=== PATIENT | female | born 1990 | race Caucasian/White ===

== ENCOUNTER 2020-02-02 13:53 | Outpatient (CLI) | payer BC, SELFPAY ==
[2020-02-02] MEDS: RHO(D) IMMUNE GLOBULIN 300 MCG SYRINGE IM (17:52)
== END 2020-02-02 13:54 | disposition home or self-care (01) ==
LOC: ANHLAB 14:03
PROVIDERS: Visit Provider Obstetrics & Gynecology
DX: O20.0 Threatened abortion (principal)
CPT/HCPCS: 36415; 85461; 90384; 96372; J2790

== ENCOUNTER 2020-06-06 09:27 | Outpatient (RCR) | payer BC, SELFPAY ==
[2020-06-06 11:11] LABS: Hematocrit 37.1 % (37.0-47.0); Hemoglobin 12.5 g/dL (12.0-15.0)
[2020-06-06 11:22] LABS: Glucose 1 Hour PP 50gm Dose 97 mg/dL
[2020-06-06 12:03] LABS: HIV 1/2 Ab P24 Ag Result Negative (Negative)
[2020-06-06] MEDS: RHO(D) IMMUNE GLOBULIN 300 MCG SYRINGE IM (15:27)
[2020-06-07 07:29] LABS: Rapid Plasma Reagin Non-Reactive (NonReactive)
== END 2020-09-04 23:59 | disposition home or self-care (01) ==
LOC: ANHLAB 09:27
PROVIDERS: Visit Provider Obstetrics & Gynecology
DX: Z29.13 Encounter for prophylactic Rho(D) immune globulin (principal); Z11.4 Encounter for screening for human immunodeficiency virus [HIV]; O36.0130 Maternal care for anti-D [Rh] antibodies, third trimester, not applicable or unspecified; Z3A.00 Weeks of gestation of pregnancy not specified
CPT/HCPCS: 36415; 82947; 85014; 85018; 85461; 86592; 86703; 90384; 96372; G0432; J2790

== ENCOUNTER 2020-08-04 23:33 | Inpatient (IN) | payer BC, SELFPAY ==
[2020-08-05] VITALS (104 sets, daily range): BP systolic 90–150; BP diastolic 42–131; PULSE 75–151; RESP 15–20; TEMP 36.6–39.1; O2SAT 94–100; BMI 28.5
--- NOTE | 2020-08-05 01:12 | PC.NURSE ---
Daylight Savings Time For Daylight Savings Time Ending in the Fall - Clocks are moved back. For Daylight Savings Time Beginning in the Spring - Clocks are moved ahead. For [facility], the time of change occurs at 0200 hrs. Time is taken from the sports book server. This entry on the patient's chart recognizes the change in time reflected during documentation. Example: 2 entries for vital signs may be charted for 0200 hrs.
--- NOTE | 2020-08-05 01:13 | PC.NURSE ---
Daylight Savings Time For Daylight Savings Time Ending in the Fall - Clocks are moved back. For Daylight Savings Time Beginning in the Spring - Clocks are moved ahead. For [facility], the time of change occurs at 0200 hrs. Time is taken from the telegraph repeater technician. This entry on the patient's chart recognizes the change in time reflected during documentation. Example: 2 entries for vital signs may be charted for 0200 hrs.
[2020-08-05 01:19] LABS: Basophils Percent Auto 0.3 % (0.2-1.2); Eosinophils Percent Auto 0.2 % (0-4.4); Hematocrit 36.9 % (37.0-47.0); Hemoglobin 12.5 g/dL (12.0-15.0); Immature Granulocyte Absolute 0.03 K/mm3 (0.00-0.031); Immature Granulocyte Percent A 0.3 % (0-0.5); Lymphocytes Absolute Auto 1.47 K/mm3 (0.9-3.2); Lymphocytes Percent Auto 12.3 % (18.3-44.2); Mean Corpuscular HGB Conc 33.9 g/dl (32-36); Mean Corpuscular Hemoglobin 29.7 pg (26-34); Mean Corpuscular Volume 87.6 fl (80-100); Mean Platelet Volume 10.7 fl (7.4-10.4); Monocytes Absolute Auto 0.8 K/mm3 (0.1-0.6); Monocytes Percent Auto 6.6 % (2.6-8.5); Neutrophils Absolute Auto 9.6 K/mm3 (1.3-6.7); Neutrophils Percent Auto 80.3 % (45.5-73.1); Platelet Count Result 108 k/mm3 (150-375); Red Blood Count 4.21 M/mm3 (4.2-5.4); Red Cell Distribution Width 12.7 % (11.5-14.5)
--- NOTE | 2020-08-05 01:26 | LDADM ---
This patient, Estevan Kelley, was admitted to Labor/Delivery/Recovery 107 on 08/04/20 at 23:33. Plans for labor, pain management and were discussed with patient. Patient/family oriented to hospital policies and general routines including ID bracelet, bed and alarms, visiting hours, pain management, procedures, bathroom and other care routines, personal items, smoking policy, room service/diet and guest tray routines, infant security routines, and visiting hours. Patient/Family are encouraged to report perceived risks to care and to ask questions if they do not understand what they are told or what they should do. See OBIX for further documentation.
[2020-08-05 02:00] LABS: Glucose Point of Care 96 (65-105)
[2020-08-05] MEDS: ONDANSETRON INJ 4 MG/2 ML VIAL IV PUSH ×2 (02:06→08:02)
[2020-08-05] MEDS: fentaNYL CITRATE INJ (*CRX) 100 MCG/2 ML VIAL 50 MCG IV PUSH (02:24)
[2020-08-05] MEDS: LACTATED RINGERS 1,000 ML 125 ML IV CONT ×2 (05:35→09:00)
[2020-08-05] MEDS: FAMOTIDINE 20 MG/2 ML VIAL IV PUSH (07:04)
[2020-08-05 07:15] LABS: Glucose Point of Care 127 (65-105)
[2020-08-05] MEDS: fentaNYL CITRATE INJ (*CRX) 100 MCG/2 ML VIAL IV PUSH (08:02)
--- NOTE | 2020-08-05 09:44 | WPDANESEPPF ---
Anes - Initial Pre Proc Eval Procedure: labor epidural Date/Time: 08/05/20 09:44 Surgeon: Barbie Rebolledo MD Pre Op Diagnosis: labor pain Pre Op Diagnosis: Contractions Patient Data Age: 29 Gender: F Height: 1.6 m Weight: 73.2 kg Last Vital Signs Temp 36.9 C 08/05/20 07:00 Pulse 95 08/05/20 09:42 Resp 16 08/05/20 07:00 BP 108/62 08/05/20 09:42 Pulse Ox 97 08/05/20 09:40 Allergies Allergy/AdvReac Type Severity Reaction Status Date / Time No Known Allergies Allergy Verified 07/27/20 14:44 Home Medications Medication Instructions Recorded Confirmed Type albuterol sulfate 2 inh INHALATION Q6H PRN 07/27/20 07/27/20 History prenat.vits,kaleb,[id number] 1 tablet PO DAILY 07/27/20 08/05/20 History [ #2] Laboratory Tests 08/05/20 08/05/20 08/05/20 01:11 HARP MAKER 01:11 HARP MAKER 01:11 HARP MAKER WBC 12.0 K/mm3 H K/mm3 (4.5-10.0) RBC 4.21 M/mm3 M/mm3 (4.2-5.4) Hgb 12.5 g/dL g/dL (12.0-15.0) Hct 36.9 % L % (37.0-47.0) MCV 87.6 fl fl (80-100) MCH 29.7 pg pg (26-34) MCHC 33.9 g/dl g/dl (32-36) RDW 12.7 % % (11.5-14.5) Plt Count 108 k/mm3 L k/mm3 (150-375) MPV 10.7 fl H fl (7.4-10.4) Immature Gran % (Auto) 0.3 % % (0-0.5) Neut % (Auto) 80.3 % H % (45.5-73.1) Lymph % (Auto) 12.3 % L % (18.3-44.2) Ray % (Auto) 6.6 % % (2.6-8.5) Eos % (Auto) 0.2 % % (0-4.4) Baso % (Auto) 0.3 % % (0.2-1.2) Lymph # (Auto) 1.47 K/mm3 K/mm3 (0.9-3.2) Ray # (Auto) 0.8 K/mm3 H K/mm3 (0.1-0.6) Eos # (Auto) 0.0 K/mm3 K/mm3 (0-0.3) Baso # (Auto) 0.0 K/mm3 K/mm3 (0.0-0.1) Abs Immat Gran (auto) 0.03 K/mm3 K/mm3 (0.00-0.031) Absolute Neuts (auto) 9.6 K/mm3 H K/mm3 (1.3-6.7) Absolute Nucleated RBC 0.0 K/mm3 K/mm3 (0.0-0.012) Nucleated RBC % 0.0 % % (0.0-0.2) POC Capillary Glucose RPR Pending Blood Type A Negative Antibody Screen Positive Antibody Identification Passive Due to RH Imm Glob Antigen Identification Cancelled KEMAL, IgG Interpret Not Performed KEMAL, Poly Interpret Negative KEMAL, Complement Interp Not Performed 08/05/20 08/05/20 02:01 07:12 WBC RBC Hgb Hct MCV MCH MCHC RDW Plt Count MPV Immature Gran % (Auto) Neut % (Auto) Lymph % (Auto) Ray % (Auto) Eos % (Auto) Baso % (Auto) Lymph # (Auto) Ray # (Auto) Eos # (Auto) Baso # (Auto) Abs Immat Gran (auto) Absolute Neuts (auto) Absolute Nucleated RBC Nucleated RBC % POC Capillary Glucose 96 mg/dl mg/dl 127 mg/dl H mg/dl (65-105) (65-105) RPR Blood Type Antibody Screen Antibody Identification Antigen Identification KEMAL, IgG Interpret KEMAL, Poly Interpret KEMAL, Complement Interp Patient hx anesthesia problems: none Family hx anesthesia problems: none [facility] Past Medical History Medical History (Updated 08/05/20 @ 09:45 by Chris Yeung DO) Asthma Fibromyalgia Hypoglycemia Family History Family History (Updated 07/27/20 @ 14:50 by Perri Brizuela RN) Mother Fibromyalgia Grandparent Alzheimer disease Grandparent Diabetes mellitus Grandparent Skin cancer Social History Social History Smoking status: Never smoker Substance use: never Spiritual care concerns: No Anes - Eval Final PreProcedure Day of Procedure 08/05/20 09:44 Patient weight: overweight ASA classification: III Anesthesia type and monitoring: regional epidural and sta
--- NOTE | 2020-08-05 09:53 | WPDOBADMIT ---
Obstetrics - Admit Note Admission Note: record reviewed. No pertinent additions to the history and/or any subsequent changes in the physical findings that are not consistent with the expected course of the were found.Pt arrived in labor Sve /-2, AROM large amount of clear odorless fluid Additions to the history and/or subsequent changes in the physical findings follow. None.
[2020-08-05] MEDS: AMPICILLIN 2 GM/NS 100 ML 2 GM/100 ML BAG IVPB (12:24)
[2020-08-05] MEDS: OXYTOCIN 30 UNITS/NS 500 ML 30 UNITS/500 ML BAG 999 UNITS IV CONT (13:40)
--- NOTE | 2020-08-05 13:53 | PM.OBPRVD ---
OB - Delivery Note Procedure Delivery date: 08/05/20 Procedure: vaginal delivery events: No Care and Labor < 37 Weeks Intrapartal events: None and Febrile Delivery augmentation: rupture of membranes Delivery monitor: none Route of delivery: Laceration Description: Periurethral and Perineal - 1st Degree Delivery repair: vicryl Specimen: Yes Estimated blood loss (mL): 362 Anesthesia type: Epidural Disposition: other () Complications: maternal fever [place] Baby Date of : 08/05/20 Time of : 13:33 Weeks of gestation at delivery: 36 Infant gender: Male Weight (pounds): 6 Weight (ounces): 2 presentation: vertex position: Left Occiput Anterior Placenta delivery description: Spontaneous cord vessel description: 3 Vessels and Clamped/Cut Narrative: tachycardia and fever, baby to nursery for continued monitoring
[2020-08-05] MEDS: OXYTOCIN 30 UNITS/NS 500 ML 30 UNITS/500 ML BAG 125 UNITS IV CONT (13:56)
[2020-08-05] MEDS: WITCH HAZEL 40 PADS 1 PAD TOPICAL (15:34)
[2020-08-05] MEDS: BENZOCAINE 20% AER SPR (*SP) 56 GM CAN 1 SPRAY TOPICAL (15:34)
[2020-08-05] MEDS: LANOLIN (LANSINOH) 7.5 GM CREAM 1 APPLIC TOPICAL (15:35)
--- NOTE | 2020-08-05 16:16 | PC.NURSE ---
Patient transferred to post room # via 280 per wheelchair. Support person present. Oriented to unit, room, information board, rooming in, admission packet and security measures. Patient verbalizes understanding.
[2020-08-05] MEDS: DOCUSATE SODIUM 100 MG CAPSULE PO (16:46)
[2020-08-05] MEDS: IBUPROFEN 600 MG TABLET PO (16:46)
[2020-08-06] MEDS: IBUPROFEN 600 MG TABLET PO ×4 (02:08→20:36)
[2020-08-06] MEDS: ACETAMINOPHEN 325 MG TABLET 650 MG PO ×3 (02:09→14:37)
[2020-08-06 05:51] LABS: Hematocrit 28.5 % (37.0-47.0); Hemoglobin 9.5 g/dL (12.0-15.0)
--- NOTE | 2020-08-06 07:50 | WPDANLDPN2 ---
Anes-Prog Note L&D Date/Time: 08/06/20 07:50 Comfortable throughout: labor and delivery Neuraxial method: epidural Epidural/Spinal procedure site: clean & non-tender Neuro status: Neuro function grossly intact. Cardiovascular status: normal Respiratory status: normal Airway patency: baseline Mental status: baseline Post-Op hydration status: normal Vital Signs: Last Vital Signs Temp 36.9 C 08/05/20 20:00 Pulse 94 08/05/20 20:00 Resp 18 08/05/20 20:00 BP 106/61 08/05/20 20:00 Pulse Ox 98 08/05/20 20:00 Pain score (VAS): 10/14 I/O: Intake & Output 08/05/20 08/05/20 08/06/20 15:59 23:59 07:59 Intake Total 2700 Output Total 493 Balance 2207 Post-procedural complaints: none Patient feedback: Patient satisfied with anesthetic care.
[2020-08-06 08:00] VITALS: BP 103/61; PULSE 84; RESP 18; TEMP 36.2
--- NOTE | 2020-08-06 08:09 | PM.OBPNVD ---
OB - PN: Subj Subjective Date/time seen: 08/06/20 08:09 Patient comments: no complaints baby status: doing well OB - PN: Obj Data Labs CBC & Chem 7: 08/06/20 05:06 Labs: Laboratory Results - last 24 hr 08/06/20 05:06 Hgb 9.5 L D Hct 28.5 L OB - PN A/P Plan day: 1 Plan: routine care Time Spent With Patient Time: Total time spent is greater than 50% in coordination of care (as documented) at patient's floor/unit and/or counseling patient: Time with patient: less than 15 minutes Review of Systems Review of Systems: All systems reviewed & are unremarkable except as noted in HPI and below Exam Narrative: Exam Narrative: Fundus firm and vaginal flow controlled. No lower ext redness, warmth, or edema. Negative homans. Const: General: comfortable Chest: Breast/axilla inspection: normal inspection of the breasts Resp: Effort & Inspection: normal respiratory effort Cardio: Rate: regular rate GI: GI Palp: Yes Soft to palpation Psych: Appearance: grossly normal Affect: normal affect Attitude: cooperative Thought content: Yes Normal thought content present Judgement: Good judgement present (Psych)
[2020-08-06] MEDS: MULTIVIT/MIN/PREN/FOL AC/IRON TABLET 1 TAB PO (08:49)
[2020-08-06] MEDS: DOCUSATE SODIUM 100 MG CAPSULE PO (08:50)
[2020-08-06] MEDS: POLYSACCHARIDE IRON COMPLEX 150 MG CAPSULE PO ×2 (08:50→17:33)
[2020-08-06] MEDS: WITCH HAZEL 40 PADS 1 PAD TOPICAL (08:51)
[2020-08-06] MEDS: BENZOCAINE 20% AER SPR (*SP) 56 GM CAN 1 SPRAY TOPICAL (08:51)
[2020-08-06] MEDS: LANOLIN (LANSINOH) 7.5 GM CREAM 1 APPLIC TOPICAL (08:51)
[2020-08-06 09:57] LABS: Rapid Plasma Reagin Non-Reactive (NonReactive)
--- NOTE | 2020-08-06 14:00 | PC.NURSE ---
Consulted with patient, mother reports infant will eagerly latch using a nipple shield. Mother states she can independently latch with shield and will remove after a few minutes of nursing to complete feeding without shield. Mother states her nipples are inverted. Discussed nipple shield precautions and possible complications. Instructions given on application and cleaning of shield. Patient able to return demonstration on proper application of shield. Discussed the need to initiate pumping if continues to nurse with the shield. Patient verbalizes understanding. Discussed and the 366/7 week , establishing may have its own unique set of circumstances due to their immaturity. infants may be less alert, have less stamina and may have issues with latch, suck and swallow. With the possible inability to have a vigorous suck swallow, infants may not be adequately stimulating mother and/or able to have adequate milk transfer. Pumping should be considered for additional stimulation and to offer EBM as part of supplement if needed. Mother's nipples are not inverted, they will draw in depending on where mother applies hold. Suggested mother use U hold farther away from areola. Reviewed infant feeding cues, frequencies, duration of feedings, feeding elimination flow sheet, and signs of adequate intake. Demonstrated stimulation techniques to wake infant for feeding. Assisted with infant to breast. Reviewed positioning/alignment in cross cradle, holding breast in U hold and guided asymmetrical latch on. Discussed rational for each. Infant was able to latch correctly. Infant nursed eagerly, with steady draws and frequent swallowing noted. Reviewed signs of a correct latch, effective nursing and suck swallow ratio. was able to maintain latch without discomfort to mother. released latch, mother was able to independently latch correctly. Nipple care reviewed. Suggested mother stimulate infant while feeding to keep awake and nursing effectively for increased intake and to assist with maintaining deep latch. Instructed mother to call out for RN assistance if she is unable to latch infant for feeding or she has discomfort with nursing. Instructed feeding should be initiated three hours from start of last feeding or if feeding cues are noted before. Mother voiced understanding of information shared.
--- NOTE | 2020-08-06 14:35 | PCDIET ---
Mother wishes instructions on her breastpump from home. Instructions given on breast pump care and usage, pumping schedule, nipple care, and collection and storage of breast milk. Encouraged [id number], breast massage and manual expression to stimulate supply. Assessed patient for correct flange size, placement and draw. Patient verbalizes and demonstrates understanding of instructions. Advised to pump 5 minutes after each feeding.
[2020-08-06 20:25] VITALS: BP 104/52; PULSE 84; RESP 16; TEMP 36.8; O2SAT 99
[2020-08-07] MEDS: IBUPROFEN 600 MG TABLET PO (05:01)
--- NOTE | 2020-08-07 07:35 | P.PNOB_ITS ---
OB - PN: Subj Subjective Date/time seen: 08/07/20 07:35 Patient comments: no complaints baby status: doing well OB - PN: Obj Data Labs CBC & Chem 7: 08/06/20 05:06 Labs: Laboratory Results - last 24 hr 08/05/20 01:11 FIELD ARTILLERY CREWMEMBER RPR Non-reactive OB - PN A/P Plan day: 2 Plan: discharge home Time Spent With Patient Time: Total time spent is greater than 50% in coordination of care (as document ed) at patient's floor/unit and/or counseling patient: Review of Systems Review of Systems: All systems reviewed & are unremarkable except as noted in HPI and below Constitutional: Constitutional: Reports as per HPI Exam Const: General: cooperative Extrem: General: normal to inspection Psych: Attitude: cooperative
--- NOTE | 2020-08-07 07:36 | P.DS_ITS ---
DS: Admitting Diagnosis Admitting Diagnosis Admitting Diagnosis: Contractions OB - DS: Summary OB Procedures : None OB Procedures Intrapartum: Spontaneous Vag Delivery OB Procedures: : None Time Spent with Patient Time attestation: Total time spent providing and/or coordinating discharge services: DS: Data Data Completed and Pending Pending studies at discharge: Pending at discharge 08/05/20 13:40 Surgical [PTH] Routine Labs on day of discharge: Labs from last 24 hours 08/05/20 01:11 CLIENT REPRESENTATIVE RPR Non-reactive Discharge Plan Discharge Attending physician on discharge: Barbie Rebolledo Discharging Clinician: Barbara Garland Patient Disposition: Home, Self-Care Activity: pelvic rest Diet: regular Patient Instructions: Antibiotic Form Stand Alone Forms: General Discharge Information Follow-up/Referrals: Barbara Garland CNM [Certified Nurse Handle Rounder Operator] - 4 Weeks Discharge Medications: New polysaccharide iron complex 150 mg iron Capsule 150 mg PO BIDWM Qty: 60 RF: 0 Continued #2 Tablet 1 tablet PO DAILY RF: 0 albuterol sulfate 90 mcg/actuation Aerosol Powdr Breath Activated 2 inh INHALATION Q6H PRN (Reason: Respiratory Distress) RF: 0 Date of admission: 08/04/20 23:33 Primary Care Provider: PHYSICIAN,NOTCHER Admitting Provider: Barbie Rebolledo Attending physician on admission: Barbie Rebolledo
[2020-08-07 07:55] VITALS: BP 104/54; PULSE 67; RESP 18; TEMP 36.4; O2SAT 100
[2020-08-07] MEDS: POLYSACCHARIDE IRON COMPLEX 150 MG CAPSULE PO (07:58)
[2020-08-07] MEDS: MULTIVIT/MIN/PREN/FOL AC/IRON TABLET 1 TAB PO (07:58)
[2020-08-07] MEDS: DOCUSATE SODIUM 100 MG CAPSULE PO (07:58)
[2020-08-07] MEDS: ACETAMINOPHEN 325 MG TABLET 650 MG PO (08:01)
--- NOTE | 2020-08-07 08:10 | PC.NURSE ---
Patient viewed the discharge video Mother & Baby Care, The First Two Weeks . Patient was given the opportunity and encouraged to ask questions. Patient verbalized understanding of information shared and has been given the mother/baby guide for home reference.
[2020-08-08 09:36] VITALS: BP 119/63; PULSE 85; RESP 20; TEMP 36.9; O2SAT 100
--- NOTE | 2020-08-17 02:44 | PM.OBDSVD ---
DS: Admitting Diagnosis Admitting Diagnosis Admitting Diagnosis: Contractions OB - DS: Summary OB Procedures : None OB Procedures Intrapartum: Spontaneous Vag Delivery OB Procedures: : None Time Spent with Patient Time attestation: Total time spent providing and/or coordinating discharge services: DS: Data Data Completed and Pending Completed studies during hospitalization: Pending at discharge 08/05/20 13:40 Surgical [PTH] Routine Discharge Plan Discharge Attending physician on discharge: Barbie Rebolledo Consulting providers: ; Barbara Garland ; Magdalena Rodriguez ; Chris Yeung Discharging Clinician: Barbara Garland Patient Disposition: Home, Self-Care Activity: pelvic rest Diet: regular Discharge Instructions: Education: Mom and Baby Guide and Preeclampsia Handout Given to: Mother Follow-Up: Call your delivering provider's office for an appointment to be seen in: 4 Weeks [facility]. Appointment Date/Time: August 08, 2020 at 9:00 am What to expect at your follow-up visit: Physical Assessment Call [phone] if you are unable to keep your appointment time. BREAST CARE: * Wear a snug supportive bra. * For engorgement discomfort: Breast Feeding: * Apply warm moist washcloths * Express milk as needed to relieve engorgement * Wear loose clothing * For sore nipples: * Identify correct latch-on * Apply warm moist washcloths before and after nursing * Air dry nipples after nursing * May apply Lansinoh cream to nipples EPISIOTOMY/PERINEAL CARE: * Until bleeding stops, use your beto bottle after urinating * Change your pad frequently throughout the day * You may take sitz baths several times a day (fill your bathtub with warm water and soak for 20 minutes.) Do NOT bathe in the water * No tub baths until seen by your physician - You may shower ACTIVITY: * Rest as much as possible. * Do not exercise or lift anything heavier than your baby (such as laundry or other children.) * Avoid stairs or driving as much as possible. * Do not put anything into the vagina. No douching, tampons, or sexual activity until seen by physician. NOTIFY PHYSICIAN IF YOU HAVE ANY QUESTIONS OR IF ANY OF THE FOLLOWING SYMPTOMS OCCUR: * If your episiotomy or perineum becomes red, swollen, or more painful than what you have experienced in the hospital. * If your vaginal bleeding becomes foul smelling. * If your vaginal bleeding becomes more heavy than a period or if your bleeding changes from pink to bright red. However, you may pass an occasional walnut-sized clot once or twice for the first week . * If you experience a sharp, shooting pain in you calves. * If you discover a hard, reddened area on your breast or if you experience flu-like symptoms. DIET: * Eat regular, well-balanced meals. * Drink plenty of fluids daily. If , drink to thirst. Stand Alone Forms: General Discharge Information Follow-up/Referrals: Barbara Garland CNM [Certified Nurse Designer] - 4 Weeks Discharge Medications: New polysaccharide iron complex 150 mg iron Capsule 150 mg PO BIDWM Qty: 60 RF: 0 Continued prenat.vits,kaleb,[id number] Tablet 1 tablet PO DAILY RF: 0 albuterol sulfate 90 mcg/actuation Aerosol Powdr Breath Activated 2 inh INHALATION Q6H PRN (Reason: Respiratory Distress) RF: 0 Date of admission: 08/04/20 23:33 Primary Care Provider: PHYSICIAN,MANAGER TELEMETRY Admitting Provider: Barbie Rebolledo Attending physician on admission: Barbie Rebolledo Condition: Stable
== END 2020-08-07 11:28 | disposition home or self-care (01) | DRG 805 ==
LOC: ANHLDR 08-05 00:56 → ANHOB2 08-05 16:23
PROVIDERS: Advanced Practice Midwife; Admitting Provider Obstetrics & Gynecology; Visit Provider Obstetrics & Gynecology
DX: O60.14X0 Preterm labor third trimester with preterm delivery third trimester, not applicable or unspecified (principal); O41.1230 Chorioamnionitis, third trimester, not applicable or unspecified; Z37.0 Single live birth; Z3A.36 36 weeks gestation of pregnancy; O70.1 Second degree perineal laceration during delivery; O71.82 Other specified trauma to perineum and vulva; O36.8330 Maternal care for abnormalities of the fetal heart rate or rhythm, third trimester, not applicable or unspecified; O99.892 Other specified diseases and conditions complicating childbirth; M79.7 Fibromyalgia; O99.52 Diseases of the respiratory system complicating childbirth; J45.909 Unspecified asthma, uncomplicated
CPT/HCPCS: 36415; 85014; 85018; 85025; 86592; 86850; 86880; 86900; 86901; 86902; 88307; A9270; J0131; J0290; J2405; J2590; J2795; J3010; J7120